=== PATIENT | male | born 1980 | race Caucasian/White ===

== ENCOUNTER 2021-05-31 21:39 | Emergency (ER) | payer OTHER | END 2021-05-31 22:30 | disposition home or self-care (01) | LOC: ER 21:39 | DX: Z53.21 Procedure and treatment not carried out due to patient leaving prior to being seen by health care provider (principal) ==

== ENCOUNTER 2021-09-14 14:45 | Inpatient (IN) | payer OTHER ==
[~2021-09-14] VITALS: Ht 188 cm; Wt 98.4 kg
[2021-09-14 14:45] VITALS: BP 115/83
[2021-09-14 17:27] LABS: HEMOGLOBIN 13.2 gm/dL (14.0-18.0)
[2021-09-14 17:29] LABS: ABSOLUTE NEUTROPHILS 4.8 thou/uL (1.4-8.2); BASOPHILS 0.6 % (0.0-2.0); EOSINOPHILS 1.4 % (0.0-3.0); HEMATOCRIT 39.5 % (42.0-52.0); LYMPHOCYTES 19.8 % (24.0-44.0); MCH 31.2 pg (26.0-34.0); MCHC 33.5 g/dL (28.0-37.0); MONOCYTES 9.9 % (1.0-8.0); PLATELET COUNT 208 thou/uL (150-400); POLYS 68.3 % (36.0-66.0); RBC 4.25 mil/uL (4.50-6.00)
[2021-09-14 17:39] LABS: CALCIUM 8.7 mg/dL (8.5-10.1); CREATININE 0.9 mg/dL (0.7-1.3); POTASSIUM 3.9 mmol/L (3.5-5.1)
[2021-09-15 05:21] LABS: HEMATOCRIT 40.9 % (42.0-52.0); HEMOGLOBIN 13.8 gm/dL (14.0-18.0); MCH 31.6 pg (26.0-34.0); MCHC 33.8 g/dL (28.0-37.0); MCV 93.3 fL (80.0-100.0); RBC 4.39 mil/uL (4.50-6.00); WBC 6.9 thou/uL (4.0-11.0)
[2021-09-15 05:28] LABS: CALCIUM 8.4 mg/dL (8.5-10.1); CREATININE 0.9 mg/dL (0.7-1.3); POTASSIUM 4.2 mmol/L (3.5-5.1)
[2021-09-15 08:08] VITALS: BP 115/70
--- NOTE | 2021-09-15 12:17 | NUR ---
41 year old male admitted through the ED on 09-14-21 with pain and redness in in right hand. Patient was found to have flexor tendon tenosynovitis and started on IV ABT's with orthopedic consult. Noted from ED ID NOW as negative and reports unvaccinated. On 09-15-21 the patient was taken to the OR for an ID of the right middle finger flexor sheath. The patient remains on ABT's and ROM. The patient is A&O x4 per all assessments and has been instructions to follow up with orthopedics in 2-weeks. Do not anticipate CM need for discharge planning; but will be available if consulted.
[2021-09-15 16:00] VITALS: BP 107/78
--- NOTE | 2021-09-15 16:29 | NUR ---
ASSUMED PT CARE FROM PACU AT 1600. PT HAD I&D ON R MIDDLE FINGER THIS AFTERNOON. PT IS ALERT & ORIENTED X4. PT HAS IV SITE ON LFA 20 GAUGE RUNNING NS @100ML/HR AND ANTIBIOTICS. PT IS ON ROOM AIR. FINISHED ADMISSION. PT IS UP AD GILBERT. PT RATED PAIN 8/10 ON R MIDDLE FINGER. PT ON THE BED WATCHING TV, BED ON THE LOWEST POSITION, SIDE RAILS UP, CALL LIGHT WITHIN REACH. WILL CONTINUE TO MONITOR PT. FOLLOW POC.
[2021-09-15 18:52] VITALS: BP 107/72
--- NOTE | 2021-09-16 03:51 | NUR ---
ASSUMED CARE OF PT AT 1900, BEDSIDE REPORT RECIEVED. RERE ASSESSMENT COMPLETE. PT C/O R HAND, MIDDLE FINGER PAIN. PAIN MEDS GIVEN ACCORDINGLY. LFA PIV CDI, PATENT C IVF INFUSING PER JAN. PT UP ADLIB TO BATHROOM. PROVIDED HYGIENE SUPPLIES FOR PT AND FILLED ICE WATER. DRESSING TO R HAND CDI C NO APPARENT DRAINAGE. HOURLY ROUNDING CONTINUING, ALL NEEDS MET. CALL LIGHT IN REACH
[2021-09-16 05:54] VITALS: BP 100/62
[2021-09-16 07:10] VITALS: BP 129/83
--- NOTE | 2021-09-16 09:30 | NUR ---
Pelon visited with Van at bedside, he is a & o x 3, and able to make his needs know. Lives at home with his girlfriend Manda Aguiar. 2story duplex. Independent. Has children that do not live with him. worked in past, currently unemployed. Discussed during los with the hospitalist, Tucker over the weekend. Ok to vouch for medication at [facility] outpt pharmacy. Cm notified by OT that he will need outpt ot for his hand. CM got a MDsave paperwork to fill out himself.
--- NOTE | 2021-09-16 11:03 | NUR ---
ASSUMED PT CARE THIS AM. PT IS ALERT & ORIENTED X4. PT IS UP AD GILBERT. PT HAS IV SITE ON LFA. PT C/O OF PAIN AND GIVEN PO PAIN MEDICATION PER PT REQUEST. PT IS ON ROOM AIR. DR FAN CHANGED DRESSING ON R MIDDLE FINGER THIS AM. DISCONTINUED IV MORPHINE PER DR ORDERED. WILL CONTINUE TO MONITOR PT. FOLLOW POC.
[2021-09-16] MEDS ORDERED: LINEZOLID600 MG PO (14:25)
[2021-09-16] MEDS ORDERED: TYLENOL325 MG PO (14:28)
[2021-09-16 15:24] VITALS: BP 126/82
[2021-09-16 20:46] VITALS: BP 123/78
--- NOTE | 2021-09-17 00:58 | NUR ---
UPON SHIFT REPORT, PT REPORTING 7/10 PAIN IN RIGHT MIDDLE FINGER AND HAND. PT RECEIVING PRN PO NORCO Q4HR. UPON SHIFT ASSESSMENT, PT AOX4. PT CONTINUES TO REPORT 7/10 RIGHT MIDDLE FINGER AND HAND PAIN. PT RECEIVING PRN PO APAP Q6HR. PT DENIES SOB WHILE ON ROOM AIR. PT TOLERATING PO INTAKE OF FLUIDS AND REGULAR DIET WITHOUT ISSUE. PT WITHOUT NAUSEA OR EMESIS. PT AMBULATING INDEPENDENTLY IN ROOM AND BATHROOM, RESTING IN BED OTHERWISE. FREQUENT REPOSITIONING ENCOURAGED WHILE IN BED, PT NOTED TO SHIFT INDEPENDENTLY. PT REPORTS NUMBNESS IN RIGHT MIDDLE FINGER. CAPILLARY REFILL LESS THAN 3SEC, PERIPHERAL PULSES PALPABLE IN ALL EXTREMITIES. PT ENCOURAGED TO NOTIFY STAFF FOR ALL NEEDS, CALL LIGHT WITHIN REACH, BED LOCKED IN LOWEST POSITION, FREQUENT MONITORING WILL CONTINUE.
[2021-09-17 04:20] VITALS: BP 132/87
[2021-09-17 09:13] VITALS: BP 128/89
[2021-09-17 15:34] VITALS: BP 152/98
[2021-09-17 20:01] VITALS: BP 126/85
--- NOTE | 2021-09-18 03:26 | NUR ---
ASSUMED CARE OF PT AT 1900. BEDSIDE REPORT RECIEVED. RERE ASSESSMENT COMPLETE. PT AOX4. C/O 07/15 R HAND/MIDDLE FINGER PAIN. DRESSING IN PLACE. MEDS GIVEN PER MAR, PAIN MEDS GIVEN ACCORDINGLY. PT UP ADLIB, CONTINENT OF BOWEL AND BLADDER. IVF INFUSING PER JAN. VANCO TROPH DRAWN, WNL, 1999 VANCO DOSE HUNG AFTER RESULTS. ALL NEEDS MET, HOURLY ROUNDING CONTINUING. CALL LIGHT IN REACH
[2021-09-18 10:08] VITALS: BP 126/85
--- NOTE | 2021-09-18 10:16 | NUR ---
ASSUMED PT CARE THIS AM. PT IS ALERT & ORIENTED X4. PT HAS IV SITE ON [place] RUNNING NS @100ML/HR. PT IS UP AD GILBERT. PT IS ON ROOM AIR. PT TOLERATED DIET AND MEDICATION WELL. EDUCATED AND INFORMED PT ABOUT DC INSTRUCTIONS. GAVE PRESCRIPTION MEDS TO TAKE HOME PER DR MCCALLUM. REMOVED IV. AWAITING FOR PT FRIEND TO PICK HIM UP.
== END 2021-09-18 11:23 | disposition home or self-care (01) | DRG 558 ==
LOC: ER 14:45 → EROBS 18:26 → 4S 18:26 → EROBS 18:27 → 4S 09-15 15:32
PROVIDERS: Nurse Practitioner Family; Physician Assistant; ADMIT Hospitalist; ATTEND Hospitalist
PROC: 0J9J0ZZ Drainage of Right Hand Subcutaneous Tissue and Fascia, Open Approach (ICD-10-PCS; principal; 2021-09-15)
DX: M65.841 Other synovitis and tenosynovitis, right hand (principal); Z88.0 Allergy status to penicillin; Z20.822 Contact with and (suspected) exposure to COVID-19; Z86.14 Personal history of Methicillin resistant Staphylococcus aureus infection; Z28.21 Immunization not carried out because of patient refusal
CPT/HCPCS: 10195; 50010; 50101; 50386; 56527; 57006; 57091; 57178; 62110; 62900; 65060; 70005